=== PATIENT | male | born 1960 | race Caucasian/White ===

== ENCOUNTER 2022-10-19 15:06 | Emergency (ER) | payer OTHER ==
[2022-10-19] MEDS ORDERED: LEVOTHYROXINE25 MCG PO (15:51)
[2022-10-19] MEDS ORDERED: BENICAR20 MG PO (15:51)
[2022-10-19] MEDS ORDERED: ATORVASTATIN CA20 MG PO (15:52)
[2022-10-19 16:02] LABS: BASO # 0.03 K/mm3 (0.02-0.10); EOS % 0.9 % (0.0-4.0); HEMOGLOBIN 16.7 g/dL (13.5-18.0); LYMPH# 2.65 K/mm3 (1.50-4.00); MEAN CELL VOLUME 90 fl (78-100); MEAN CORPUSCULAR HEMOGLOBIN 30 pg (27-31); MEAN CORPUSCULAR HGB CONC 33 g/dL (33-37); MEAN PLATELET VOLUME 9.7 fl (7.4-10.4); MONO # 0.79 K/mm3 (0.20-0.80); NEU # 7.45 K/mm3 (1.40-6.50); PLATELET COUNT 244 K/mm3 (130-400); RED BLOOD COUNT 5.57 M/mm3 (4.20-5.60); RED CELL DISTRIBUTION WIDTH 12.8 % (11.5-14.5); WHITE BLOOD COUNT 11.1 K/mm3 (4.8-10.8)
[2022-10-19 16:13] LABS: POTASSIUM 3.9 mmol/L (3.5-5.1); SODIUM 143 mmol/L (136-145)
[2022-10-19 16:14] LABS: CALCIUM 9.2 mg/dL (8.3-10.5)
[2022-10-19 16:15] LABS: GLUCOSE 136 mg/dL (75-110); TOTAL PROTEIN 6.2 g/dL (6.4-8.3)
[2022-10-19 16:16] LABS: CARBON DIOXIDE 23 mmol/L (22-29)
[2022-10-19 16:17] LABS: TOTAL BILIRUBIN 0.7 mg/dL (0.2-1.2)
[2022-10-19 16:20] LABS: AST-SGOT 23 U/L (5-34)
[2022-10-19 16:21] LABS: ALCOHOL IN-HOUSE < 10 mg/dL (<10)
[2022-10-19 16:22] LABS: ALT/SGPT 55 U/L (0-55)
[2022-10-19 17:20] LABS: PH-URINE 5.5 (5.0 - 8.0); URINE APPEARANCE CLEAR; URINE BILIRUBIN NEGATIVE (NEGATIVE); URINE BLOOD NEGATIVE (NEGATIVE); URINE COLOR YELLOW; URINE GLUCOSE NEGATIVE (NEGATIVE); URINE KETONE NEGATIVE (NEGATIVE); URINE LEUKOCYTE ESTERASE NEGATIVE (NEGATIVE); URINE MUCUS PRESENT (NOT PRESENT); URINE NITRATE NEGATIVE (NEGATIVE); URINE PROTEIN(semi-quant) TRACE (NEGATIVE); URINE UROBILINOGEN NORMAL (NORMAL)
[2022-10-19 19:29] VITALS: BP 152/90
== END 2022-10-19 19:32 | disposition home or self-care (01) ==
LOC: ED 15:06
PROVIDERS: Family Medicine
DX: R41.3 Other amnesia (principal); I10 Essential (primary) hypertension; Z28.310 Unvaccinated for COVID-19